=== PATIENT | female | born 1980 | race African-American/Black ===

== ENCOUNTER 2019-09-26 02:14 | Emergency (ER) | payer SELFPAY ==
[~2019-09-26] VITALS: Ht 167.6 cm; Wt 65.0 kg
[2019-09-26 02:32] VITALS: BP 130/50
== END 2019-09-26 06:47 | disposition left against medical advice (07) ==
LOC: ER 02:14
DX: R56.9 Unspecified convulsions (principal); Z53.21 Procedure and treatment not carried out due to patient leaving prior to being seen by health care provider